=== PATIENT | female | born 1985 | race Two or more races ===

== ENCOUNTER 2023-07-02 00:06 | Emergency (ER) | payer MEDICAID ==
[~2023-07-02] VITALS: Ht 157.5 cm; Wt 70.5 kg
[2023-07-02] MEDS ORDERED: KETOROLAC TROMETHAMINE 60 MG/2 ML VIAL IM ONE (01:15)
[2023-07-02] MEDS ORDERED: GuaiFENesin/D-METHORPHAN [SUGAR-FREE] 200-20MG/10 ML SYRUP UDCUP PO ONE (01:15)
[2023-07-02] MEDS ORDERED: ACETAMINOPHEN 500 MG TABLET PO ONE (01:15)
[2023-07-02 01:26] LABS: BASOPHILS % (AUTO) 0.9 % (0.0-2.0); EOSINOPHILS % (AUTO) 3.5 % (1.0-6.0); HEMATOCRIT 37.9 % (36-46); LYMPHOCYTES % (AUTO) 31.6 % (22.0-44.0); MEAN CORPUSCULAR HEMOGLOBIN 31.9 pg (26.0-34.0); MEAN CORPUSCULAR HGB CONC 34.2 G/dL (31.0-37.0); MEAN CORPUSCULAR VOLUME 93 fL (80-100); MONOCYTES # (AUTO) 0.9 K/uL (0.1-1.0); NEUTROPHILS # (AUTO) 5.2 K/uL (1.8-7.7); PLATELET COUNT (AUTO) 246 K/uL (150-450); RED BLOOD CELL COUNT(AUTO) 4.07 MIL/uL (4.00-5.20); RED CELL DISTRIBUTION WIDTH 13.4 % (11.5-14.5); WHITE BLOOD COUNT (AUTO) 9.5 K/uL (4.5-11.0)
[2023-07-02 01:40] LABS: ANION GAP 8 mmol/L (8-16); CALCIUM, TOTAL 8.7 mg/dL (8.8-10.5); CARBON DIOXIDE 26 mmol/L (22-29); CHLORIDE 103 mmol/L (98-107); CREATININE 0.79 mg/dL (0.60-1.30); GLOMERULAR FILTR. RATE CALC > 60 mL/min (>60); GLUCOSE,RANDOM 101 mg/dL (70-110); POTASSIUM 3.9 mmol/L (3.5-5.1); SODIUM SERUM 137 mmol/L (136-145); UREA NITROGEN, BLOOD 8 mg/dL (7-18)
[2023-07-02 02:55] LABS: INFLUENZA A-RTPCR,COMBO NEGATIVE FOR FLU A (NEGATIVE); INFLUENZA B-RTPCR,COMBO NEGATIVE FOR FLU B (NEGATIVE); SARS COVID19 RTPCR, COMBO NEGATIVE (NEGATIVE)
[2023-07-02 02:56] LABS: RESPIRATORY SYNCYTIAL VRS-PCR POSITIVE (NEGATIVE)
[2023-07-02] MEDS ORDERED: ACET-2080 PO (03:15)
[2023-07-02] MEDS ORDERED: IBUP-1554 PO (03:15)
[2023-07-02] MEDS ORDERED: GUAIFDM PO (03:15)
[2023-07-02 03:29] VITALS: BP 112/66; PULSE 66; RESP 18; TEMP 98.3
== END 2023-07-02 03:33 | disposition home or self-care (01) ==
LOC: EMS 00:08 → EDBD 00:08 → EMS 03:33
DX: J20.5 Acute bronchitis due to respiratory syncytial virus (principal); J45.909 Unspecified asthma, uncomplicated; Z20.822 Contact with and (suspected) exposure to COVID-19
CPT/HCPCS: 99283; 0241U; 80048; 84703; 85025; 36415; 96372; J1885